=== PATIENT | male | born 1975 | race African-American/Black ===

== ENCOUNTER 2019-07-07 01:26 | Emergency (ER) | payer SELFPAY ==
[~2019-07-07] VITALS: Ht 180.3 cm; Wt 86.2 kg
[2019-07-07 01:31] VITALS: Ht 180.3 cm; Wt 86.2 kg
[2019-07-07 02:06] LABS: AMPHETAMINE QUAL UR NONE DETECTED (See below)
[2019-07-07 04:53] VITALS: BP 128/86
== END 2019-07-07 04:53 | disposition home or self-care (01) ==
LOC: ED 01:26
PROVIDERS: Emergency Medicine
DX: F43.0 Acute stress reaction (principal); F31.9 Bipolar disorder, unspecified; F12.90 Cannabis use, unspecified, uncomplicated